=== PATIENT | male | born 1955 | race Caucasian/White ===

== ENCOUNTER → 2017-01-12 | Outpatient (CLI) | payer OTHER ==
[~2017-01-12] MED LIST: FLAGYL PO; LEVAQUIN PO; PRILOSEC PO; PRILOSEC40 MG PO
--- NOTE | ~2017-01-12 | EKG ---
PATIENT: SYLVESTER FARIAS UNIT #: [id number] Ventricular Rate: 53 BPM Atrial Rate: 53 BPM P-R Interval: 162 ms QRS Duration: 106 ms Q-T Interval: 446 ms QTC Calculation(Bezet): 418 ms P [place]: 59 degrees Calculated R [place]: 30 degrees Calculated T [place]: 55 degrees Diagnosis Line: Sinus bradycardia Diagnosis Line: Otherwise normal ECG Diagnosis Line: No previous ECGs available Diagnosis Line: Confirmed by CON HOUSE MD ([id number]) on 01/13/2017 Diagnosis Line: 10:35:46 AM INTERPRETING MD: LACY BASS
== END | disposition home or self-care (01) ==
LOC: CAMB 07:31
DX: Z01.810 Encounter for preprocedural cardiovascular examination (principal); K40.90 Unilateral inguinal hernia, without obstruction or gangrene, not specified as recurrent
CPT/HCPCS: 93005

== ENCOUNTER → 2017-01-17 | Day surgery (SDC) | payer OTHER ==
--- NOTE | ~2017-01-17 | OR ---
Unit #: [id number] #: [id number] Patient: SYLVESTER FARIAS [id number] [address] [address] [id number] O MR#: [id number] NAME: SYLVESTER FARIAS. ROOM: Date of Procedure: 01/17/2017 Admission Date: 01/17/2017 Surgeon: Vladimir Cantor M.D. : 1955 Attending Physician: Vladimir Cantor M.D. Primary Care Physician: Juanjose Graham M.D. OPERATIVE REPORT REVISED REPORT PREOPERATIVE DIAGNOSIS Right inguinal hernia. POSTOPERATIVE DIAGNOSIS Right inguinal hernia. PROCEDURE PERFORMED Laparoscopic right inguinal hernia repair. PROGRAM MANAGEMENT PROFESSIONAL None. ANESTHESIA General anesthesia. ESTIMATED BLOOD LOSS Minimal. IV FLUIDS 800 crystalloid. COMPLICATIONS None. INDICATIONS FOR PROCEDURE The patient is a gentleman with a bulge on his right groin consistent with an inguinal hernia. DESCRIPTION OF PROCEDURE The patient was taken to the operating theater and placed in the supine position. General anesthesia was induced. The abdomen was prepped and draped. Infraumbilical incision was then made. A small incision was made in the anterior sheath. I created the preperitoneal space with blunt dissection. I placed a Veress needle intraabdominally. The abdomen was insufflated to 15 mmHg with CO2. Under direct vision, I placed a 5 mm port. The patient was placed in Trendelenburg. I identified a right-sided indirect inguinal hernia. There was no direct hernia. I released the pneumoperitoneum. Using the Autosuture balloon dissection system, I created the preperitoneal space on the right side only. I dissected the groin identifying the lateral space. The cord was skeletonized. The hernia sac reduced. I transected the hernia sac and then ligated this with an Endoloop. I identified the Go ligament. I Unit #: [id number] #: [id number] Patient: SYLVESTER FARIAS then placed a large 3DMax mesh into position, this was anteriorized and secured to Go ligament as well as the lateral and anterior musculature with a SorbaFix Tacker. This covered the direct and indirect defect very nicely. Hemostasis was adequate. I then released the pneumopreperitoneum with care taken to avoid the peritoneum sliding posterior to the mesh. Hemostasis was adequate. I removed the ports. I closed the fascia with 0 Vicryl and skin with 4-0 Vicryl. The patient tolerated the procedure well and sent to the recovery room in good condition. Dictated by... Jesse Jim/alida TD: 01/17/2017 14:00 JOB #: [id number] OPERATIVE REPORT Page 1 of 1 X Vladimir Cantor MD X PROCEDURE OPERATIVE NOTE
== END | disposition home or self-care (01) ==
LOC: CSUR 07:00
DX: K40.90 Unilateral inguinal hernia, without obstruction or gangrene, not specified as recurrent (principal); K21.9 Gastro-esophageal reflux disease without esophagitis; F17.200 Nicotine dependence, unspecified, uncomplicated; J30.9 Allergic rhinitis, unspecified
CPT/HCPCS: C1781; J0330; J0690; J1170; J1644; J2250; J2405; J2710; J3010